=== PATIENT | male | born 1990 | race Caucasian/White ===

== ENCOUNTER 2016-09-09 10:26 | Emergency (ER) | payer OTHER, BC ==
[2016-09-09 10:30] VITALS: BP 154/80
--- NOTE | 2016-09-09 10:37 | ER Document Report ---
ED Medical Screen (RME) - General Stated Complaint: POSSIBLE SPIDER BITE Mode of Arrival: Ambulatory Information source: Patient Notes: Patient reports insect bite or sting that occurred 2 days ago while at work in the [employer]. Patient reports tenderness, redness and swelling to site. Pulse ox in triage is 98% on room air. I have greeted and performed a rapid initial assessment of this patient. A comprehensive ED assessment and evaluation of the patient, analysis of test results and completion of the medical decision making process will be conducted by additional ED providers. - Related Data Allergies/Adverse Reactions: No Known Allergies Allergy (Unverified 09/09/16 10:35) Physical Exam - Vital signs Vitals: Temp Pulse Resp BP Pulse Ox 98.0 F 90 16 154/80 H 86 L 09/09/16 10:09/09/16 10:09/09/16 10:09/09/16 10:09/09/16 10:29 - Skin Skin Color: Erythema - Proximal third of right Course - Vital Signs Vital signs: Temp Pulse Resp BP Pulse Ox 98.0 F 90 16 154/80 H 86 L 09/09/16 10:09/09/16 10:09/09/16 10:09/09/16 10:09/09/16 10:29
--- NOTE | 2016-09-09 11:41 | ER Document Report ---
ED Skin Rash/Insect Bite/Abscs - General Chief Complaint: Insect Bite Stated Complaint: POSSIBLE SPIDER BITE Mode of Arrival: Ambulatory Information source: Patient Notes: 26-year-old male presents to the emergency department complaining of areas of redness, warmth, and tenderness to right forearm. Patient reports was working outside when he felt a prick but did not see any insect biting him. Reports over the last 2 days area has increased in diameter. Denies fever or drainage. States received tetanus vaccination within the last 2 years. TRAVEL OUTSIDE OF THE [place] IN LAST 30 DAYS: No - HPI Patient complains to provider of: Tender/swollen area Onset/Duration: Persistent Quality of pain: Achy Severity: Mild Pain Level: 1 Skin Character: Erythema, Tenderness, Warm Skin Temperature: Warm Similar symptoms previously: Yes Recently seen / treated by doctor: No - Related Data Allergies/Adverse Reactions: No Known Allergies Allergy (Verified 09/09/16 11:38) Home Medications: Current Home Medications Escitalopram Oxalate [Lexapro] 09/09/16 [History] Past Medical History - General Information source: Patient - Social History Smoking Status: Never Smoker Chew tobacco use (# tins/day): No Frequency of alcohol use: Occasional Drug Abuse: None Family History: Reviewed & Not Pertinent Patient has suicidal ideation: No Patient has homicidal ideation: No Renal/ Medical History: Denies: Hx Peritoneal Dialysis Psychiatric Medical History: Reports: Hx Anxiety Surgical Hx: Negative - Immunizations Immunizations up to date: Yes Hx Diphtheria, Pertussis, Tetanus Vaccination: Yes Review of Systems - Review of Systems Constitutional: No symptoms reported EENT: No symptoms reported Cardiovascular: No symptoms reported Respiratory: No symptoms reported Gastrointestinal: No symptoms reported Genitourinary: No symptoms reported Male Genitourinary: No symptoms reported Musculoskeletal: No symptoms reported Skin: See HPI Hematologic/Lymphatic: No symptoms reported Neurological/Psychological: No symptoms reported -: Yes All other systems reviewed and negative Physical Exam - Vital signs Vitals: Temp Pulse Resp BP Pulse Ox 98.0 F 90 16 154/80 H 98 09/09/16 10:29 09/09/16 10:29 09/09/16 10:29 09/09/16 10:29 09/09/16 10:29 - General General appearance: Appears well, Alert In distress: None - Respiratory Respiratory status: No respiratory distress Chest status: Nontender Breath sounds: Normal Chest palpation: Normal - Cardiovascular Rhythm: Regular Heart sounds: Normal auscultation Murmur: No Pulses: Normal: Radial Normal capillary refill: Yes - Extremities General upper extremity: Normal inspection, Nontender, Normal color, Normal ROM , Normal temperature General lower extremity: Normal inspection, Nontender, Normal color, Normal ROM , Normal temperature, Normal weight bearing Forearm: Other - Approximately 3 cm diameter circular area of erythema, tenderness, and slight warmth to proximal lateral right forearm. Does not involve the elbow joint and is not circumferential. No significant swelling, fluctuance, or drainage. Distal neurovascular function intact. Course - Re-evaluation Re-evalutation: 09/09/16 11:40 Patient hemodynamically stable, in no distress, afebrile. Mild cellulitis to right forearm at this time with no suggestion of abscess or other complications. Area is not circumferential and does not involve any joints. Area was demarcated with surgical marking pen so patient can monitor progression at home. No indication for I&D at this time. Will give course of clindamycin, patient appears so for discharge, and agrees with home care, follow -up, and ED return precautions. - Vital Signs Vital signs: Temp Pulse Resp BP Pulse Ox 98.0 F 90 16 154/80 H 98 09/09/16 10:29 09/09/16 10:29 09/09/16 10:29 09/09/16 10:29 09/09/16 10:29 Discharge - Discharge Clinical Impression: Cellulitis Qualifiers: Site of cellulitis: extremity Site of cellulitis of extremity: upper extremity Laterality: right Qualified Code(s): L03.113 - Cellulitis of right upper limb Condition: Stable Disposition: HOME, SELF-CARE Additional Instructions: CELLULITIS: You have an infection of your skin and underlying soft tissues called cellulitis. This is due to bacteria, which can enter through any break in the skin, or even through an irritated hair follicle. Untreated, cellulitis will usually worsen. Antibiotics are required. Usually, warm packs or warm soaks, and elevation of the infected area are recommended. You should start getting better within 24 to 36 hours. Most infections respond quickly to the right medication. Follow-up care is important, however, to check for abscess (boil) formation, unsuspected foreign body, or resistant infection. If you develop fever, chills, or if the area of infection is becoming rapidly more swollen or painful, call the doctor at once. ANTIBIOTIC THERAPY: You have been given an antibiotic prescription. It's important that you take all the medication, unless instructed otherwise by your physician. Failure to complete the entire course can result in relapse of your condition. Common side effects of antibiotics include nausea, intestinal cramping, or diarrhea. Women may develop vaginal yeast infections, and babies can get yeast (thrush) in the mouth following the use of antibiotics. Contact your physician if you develop significant side effects from this medication. Allergy to this antibiotic can result in hives, wheezing, faintness, or itching. If symptoms of allergy occur, stop the medication and call the doctor. CLINDAMYCIN: You have been given a prescription for the antibiotic clindamycin. It is often prescribed for infections in the mouth, such as dental infections or abscesses, and for skin infections due to MRSA. It's important that you take all the medication, unless instructed otherwise by your physician. Failure to complete the entire course can result in relapse of your condition. Common side effects of antibiotics include nausea, intestinal cramping, or diarrhea. Women may develop vaginal yeast infections, and babies can get yeast (thrush) in the mouth following the use of antibiotics. Contact your physician if you develop significant side effects from this medication. Allergy to this antibiotic can result in hives, wheezing, faintness, or itching. If symptoms of allergy occur, stop the medication and call the doctor. Acetaminophen Acetaminophen may be taken for pain relief or fever control. It's much safer than aspirin, offering a wider range of "safe" dosages. It is safe during . Some brand names are Tylenol, Panadol, Datril, Anacin 3, Tempra, and Liquiprin. Acetaminophen can be repeated every four hours. The following are maximum recommended dosages: WEIGHT Dose Drops Elixir Chewable( 80mg) (LBS.) drprs=droppers tsp=teaspoon 6 40 mg .4 ml (1/2) 6-11 80 mg .8 ml (full) 1/2 tsp 1 tab 12-16 120 mg 1 1/2 drprs 3/4 tsp 1 1/2 tabs 17-23 160 mg 2 drprs 1 tsp 2 tabs 24-30 240 mg 3 drprs 1 1/2 tsp 3 tabs 30-35 320 mg 2 tsp 4 tabs 36-41 360 mg 2 1/4 tsp 4 1 /2 tabs 42-47 400 mg 2 1/2 tsp 5 tabs 48-53 480 mg 3 tsp 6 tabs 54-59 520 mg 3 1/4 tsp 6 1 /2 tabs 60-64 560 mg 3 1/2 tsp 7 tabs 65-70 600 mg 3 3/4 tsp 7 1 /2 tabs 71-76 640 mg 4 tsp 8 tabs 77-82 720 mg 4 1/2 tsp 9 tabs 83-88 800 mg 5 tsp 10 tabs >89 pounds or adults 650 mg to 900 mg Acetaminophen can be repeated every four hours. Maximum daily dose not to exceed 4000 mg. These maximum recommended dosages are slightly higher than the dosages written on the product container, but these dosages are very safe and well below the toxic dosage for acetaminophen. Use of Aewn-Igz-Kmfpymw Ibuprofen Ibuprofen (Advil, Nuprin, Medipren, Motrin IB) is an excellent, safe drug for fever and pain control. In addition, it has anti- inflammatory effects which may be beneficial, especially in the treatment of injuries. It's best to take ibuprofen with food. Persons with ulcer disease or allergy to aspirin should notify their physician of this before taking ibuprofen. Ibuprofen can be given every four to six hours, for a total of four doses daily. Age Pain or fever dose Antiinflammatory dose 6-8 yr 200 mg (1 tab) 200 mg (1 tab) 9-11 yr 200 mg (1 tab) 200-400 mg (1-2 tab) 11-14 yr 200-400 mg (1-2 tab) 400 mg (2 tab) 15-adult 400 mg (2 tab) 600 mg (3 tab) Elevation & Warmth The area should be elevated as much as possible over the next 48 hours. Try to keep it above the level of your heart. Apply gentle heat (such as a heating pad or hot water bottle) for about 20 to 30 minutes about every two hours -- at least four times daily. Warmth and elevation will help you make a more rapid recovery, and will ease the pain considerably. FOLLOW-UP CARE: Follow-up with your primary care provider this week. Return to the emergency department for any worsening symptoms or concerns. Prescriptions: Clindamycin HCl 300 mg PO Q6H #28 capsule Forms: Elevated Blood Pressure
== END 2016-09-09 11:46 | disposition home or self-care (01) ==
LOC: ER 10:26
DX: L03.113 Cellulitis of right upper limb (principal)
CPT/HCPCS: 99282

== ENCOUNTER 2016-09-11 19:20 | Emergency (ER) | payer OTHER, BC ==
[2016-09-11 19:30] VITALS: BP 149/78
--- NOTE | 2016-09-11 19:38 | ER Document Report ---
ED Medical Screen (RME) - General Stated Complaint: RECHECK/ABSCESS ON RIGHT ARM Time seen by provider: 19:37 Mode of Arrival: Ambulatory Information source: Patient Notes: 26-year-old male presents to ED with abscess to his right forearm. He states he was seen here [place] morning and was I&D with a needle to check for pus which none came out just blood and now the site has gotten bigger and more painful. He was started on clindamycin which she has been taken he states. I have greeted and performed a rapid initial assessment of this patient. A comprehensive ED assessment and evaluation of the patient, analysis of test results and completion of medical decision making process will be conducted by an additional ED providers. TRAVEL OUTSIDE OF THE [place] IN LAST 30 DAYS: No - Related Data Allergies/Adverse Reactions: No Known Allergies Allergy (Verified 09/11/16 19:36) Past Medical History Renal/ Medical History: Denies: Hx Peritoneal Dialysis Psychiatric Medical History: Reports: Hx Anxiety - Immunizations Immunizations up to date: Yes Hx Diphtheria, Pertussis, Tetanus Vaccination: Yes Physical Exam - Vital signs Vitals: Temp Pulse Resp BP Pulse Ox 98.3 F 83 16 149/78 H 97 09/11/16 19:28 09/11/16 19:28 09/11/16 19:28 09/11/16 19:28 09/11/16 19:28 Course - Vital Signs Vital signs: Temp Pulse Resp BP Pulse Ox 98.3 F 83 16 149/78 H 97 09/11/16 19:28 09/11/16 19:28 09/11/16 19:28 09/11/16 19:28 09/11/16 19:28
[2016-09-11] MEDS ORDERED: VANCOMYCIN HCL INJ 1000 MG VIAL IV ONE (21:25)
[2016-09-11] MEDS ORDERED: MORPHINE SULFATE 10 MG/ML INJ IV ONE (21:26)
[2016-09-11] MEDS ORDERED: LIDOCAINE 1% INJ-PF (10 MG/ML) 30 ML SDV INJ ONE (21:26)
--- NOTE | 2016-09-11 21:45 | ER Document Report ---
ED General - General Chief Complaint: Abscess Recheck Stated Complaint: RECHECK/ABSCESS ON RIGHT ARM Mode of Arrival: Ambulatory Information source: Patient Notes: This is a 26-year-old male who presents for reevaluation of cellulitis on his right upper extremity. He states that he was seen for small area of redness on near his right elbow 3 days ago. He had a needle aspiration performed which did not produce any purulence. He was discharged with clindamycin 300 mg 4 times a day which he's been compliant with. Yesterday he noticed that the redness had extended out of the Jese made on Monday. Today he had increasing redness and pain to his arm. No fevers or chills. He has been tolerating by mouth well TRAVEL OUTSIDE OF THE [place] IN LAST 30 DAYS: No - Related Data Allergies/Adverse Reactions: No Known Allergies Allergy (Verified 09/11/16 19:36) Past Medical History - General Information source: Patient - Social History Smoking Status: Never Smoker Chew tobacco use (# tins/day): No Frequency of alcohol use: Occasional Drug Abuse: None Family History: Reviewed & Not Pertinent Patient has suicidal ideation: No Patient has homicidal ideation: No Endocrine Medical History: Denies: Hx Diabetes Mellitus Type 2 Renal/ Medical History: Denies: Hx Peritoneal Dialysis Psychiatric Medical History: Reports: Hx Anxiety - Immunizations Immunizations up to date: Yes Hx Diphtheria, Pertussis, Tetanus Vaccination: Yes Review of Systems - Review of Systems Notes: REVIEW OF SYSTEMS: CONSTITUTIONAL : As per history of present illness EENT: Denies eye, ear, throat, or mouth pain or symptoms. Denies nasal or sinus congestion. CARDIOVASCULAR: Denies chest pain. RESPIRATORY: Denies cough, cold, or chest congestion. Denies shortness of breath, difficulty breathing, or wheezing. GASTROINTESTINAL: Denies abdominal pain. Denies nausea, vomiting, or diarrhea. GENITOURINARY: Denies difficulty urinating, painful urination, burning, frequency, or blood in urine. MUSCULOSKELETAL: Denies neck or back pain or joint pain or swelling. SKIN: As per history of present illness HEMATOLOGIC : Denies easy bruising or bleeding. LYMPHATIC: Denies swollen, enlarged glands. NEUROLOGICAL: Denies altered mental status or loss of consciousness. PSYCHIATRIC: Denies anxiety or stress or depression. ALL OTHER SYSTEMS REVIEWED AND NEGATIVE. Physical Exam - Vital signs Vitals: Temp Pulse Resp BP Pulse Ox 98.3 F 83 16 149/78 H 97 09/11/16 19:28 09/11/16 19:28 09/11/16 19:28 09/11/16 19:28 09/11/16 19:28 - Notes Notes: PHYSICAL EXAMINATION: GENERAL: Well-appearing, well-nourished and in no acute distress. HEAD: Atraumatic, normocephalic. EYES: Pupils equal round and reactive to light, extraocular movements intact, sclera anicteric, conjunctiva are normal. ENT: nares patent, oropharynx clear without exudates. Moist mucous membranes. NECK: Normal range of motion, supple without lymphadenopathy LUNGS: Breath sounds clear to auscultation bilaterally and equal. No wheezes rales or rhonchi. HEART: Regular rate and rhythm without murmurs ABDOMEN: Soft, nontender, normoactive bowel sounds. No guarding, no rebound. No masses appreciated. EXTREMITIES: Normal range of motion, no pitting or edema. No cyanosis. RUE: 2.5cm x 2 cm erythematous fluctuant area just proximal to elbow posteriorly, with surrounding erythema extending 7-8 cm from abscess, area marked with skin marker. FROM to elbow without pain. All compartments soft. NEUROLOGICAL: Cranial nerves grossly intact. Normal speech, normal gait. Normal sensory, motor, and reflex exams. PSYCH: Normal mood, normal affect. SKIN: Warm, Dry, normal turgor, no rashes or lesions noted. Course - Re-evaluation Re-evalutation: 09/11/16 23:20 Labs reviewed. All reassuring. Patient has had an extension of the cellulitis despite by mouth antibiotics however his abscess had not been I&D'd until tonight. Will change his antibiotics to Bactrim and Keflex and patient will follow up for wound check here in the emergency department in 24 hours. - Vital Signs Vital signs: Temp Pulse Resp BP Pulse Ox 98.3 F 83 16 149/78 H 97 09/11/16 19:28 09/11/16 19:28 09/11/16 19:28 09/11/16 19:28 09/11/16 19:28 - Laboratory Result Diagrams: 09/11/16 22:10 09/11/16 22:10 Laboratory results interpreted by me: 09/11/16 09/11/16 22:10 22:10 RBC 4.28 L Glucose 112 H Procedures - Incision and Drainage right upper arm Type: Simple Anesthetic type: 1% Lidocaine mL's of anesthetic: 3 Blade size: 11 I&D procedure: Betadine prep applied, Shurclens applied, Iodoform packing placed , Sterile dressing applied Incision Method: Incision made by scalpel Amount/type of drainage: moderate prurulent and sanguinous Discharge - Discharge Clinical Impression: Abscess of right upper extremity, Cellulitis of right arm Condition: Stable Disposition: HOME, SELF-CARE Additional Instructions: ABSCESS: You have an abscess (boil). This a pus-forming infection, usually due to staph. Some boils may be left to drain on their own, but most require lancing. From the time the tender lump first appears, it may be three or four days before the abscess is ready to alma. Local heat and rest help at this stage of treatment. An antibiotic may prevent spread of the infection. Once the abscess is opened, packing may be placed into it. This is done so pus is not sealed inside by premature closure of the cavity. The packing will be removed at your follow-up visit or you may be advised to remove it yourself at home. Sometimes this packing must be replaced a few times during healing. The wound will heal with surprisingly little scar. Depending on the size and location of an abscess, healing can take one to four weeks. You may shower and wash the area around the incision site two or three times a day. Antibiotics may be prescribed, but are usually not necessary after an abscess has been drained. If you develop fever, chills, worsening pain, or increasing swelling in the area, call the doctor or return immediately. POST INCISION AND DRAINAGE: You have had an incision made to allow drainage of an abscess. The incision must remain open so that pus and debris can drain from the wound. If the abscess cavity is large, packing is placed. This keeps the tissues from collapsing and trapping pus inside, while the body shrinks the cavity. The packing may need to be replaced every day or two. The physician will instruct you on the packing. Keep a bulky dressing over the area. Replace it if it becomes saturated with blood or pus. Do not disturb the packing (if present). You may shower and cleanse the area with gentle soap and warm water two or three times a day. Local warmth may be soothing, and may promote faster healing. Return if you develop high fever or chills, or if you note spreading redness, increasing swelling, or increasing tenderness. ORAL NARCOTIC MEDICATION: You have been given a prescription for pain control. This medication is a narcotic. It's best taken with food, as nausea can result if taken on an empty stomach. Don't operate machinery or drive within six hours of taking this medication. Do not combine this medicine with alcohol, or with any medication which can cause sedation (such as cold tablets or sleeping pills) unless you get permission from the physician. Narcotics tend to cause constipation. If possible, drink plenty of fluids and eat a diet high in fiber and fruits. CEPHALEXIN: The antibiotic you've been prescribed is a member of the cephalosporin class. This type of antibiotic covers a wide variety of infections, including those of the skin, lungs, and urinary tract. It's useful for staph infections. This antibiotic is slightly similar to the penicillin family. In rare cases , a person who is allergic to penicillin will also be allergic to this medication. If you have had a severe allergic reaction to penicillin, and have not taken this antibiotic since that time, notify your doctor. Antibiotics which cover many germs ("broad spectrum" antibiotics) are more likely to cause diarrhea or "yeast" infections. Women prone to vaginal yeast problems may suffer an attack after taking this antibiotic. In infants, oral thrush (white spots "stuck" on the cheek) or yeast diaper rash may result. See your doctor if these problems occur. Call at once if you develop itching, hives , shortness of breath, or lightheadedness. TRIMETHOPRIM-SULFA: You have been given a prescription for trimethoprim-sulfa (TMS, Septra, Bactrim). This is a combination antibiotic of the sulfa class, often used for urinary tract infections, middle ear infections, bronchitis, shigella intestinal infection, and Pneumocystis pneumonia. TMS is usually well-tolerated. Occasional side effects include nausea and decreased appetite. Septra is not recommended for infants less than two months of age. Do not take this medication if you have experienced severe side effects or allergy to sulfa medicine. You should stop this medicine at once and contact your physician if you develop any rash, joint pain, shortness of breath, bruising, or jaundice ( yellow color in the skin), or if you develop any other new or unusual symptoms. FOLLOW-UP CARE: Return to the emergency department in 24 hours for wound check as discussed. Prescriptions: Cephalexin Monohydrate [Keflex 500 mg Capsule] 500 mg PO Q6H #40 capsule Hydrocodone/Acetaminophen [Lortab 5-325 mg Tablet] 1 each PO Q6H PRN #12 tablet PRN Reason: Ibuprofen [Motrin 600 Mg Tablet] 600 mg PO TID #15 tablet Sulfamethoxazole/Trimethoprim [Bactrim 400-80 mg Tablet] 1 each PO BID #20 tablet
[2016-09-11 22:49] LABS: ABSOLUTE EOSINOPHILS # (AUTO) 0.2 10^3/uL (0.0-0.6); ABSOLUTE MONOCYTES (AUTO) 0.7 10^3/uL (0.1-1.4); ABSOLUTE NEUT (AUTO) 4.1 10^3/uL (1.7-8.2); BASOPHILS % (AUTO) 0.6 % (0-2); EOSINOPHILS % (AUTO) 2.8 % (0-6); HEMATOCRIT 39.2 % (37.9-51.0); HEMOGLOBIN 13.5 g/dL (13.5-17.0); HGB HCT DIFFERENCE 1.3; LYMPHOCYTES % (AUTO) 37.9 % (13-45); MEAN CORPUSCULAR HEMOGLOBIN 31.5 pg (27.0-33.4); MEAN CORPUSCULAR HGB CONC 34.4 g/dL (32.0-36.0); MEAN CORPUSCULAR VOLUME 92 fl (80-97); MONOCYTES % (AUTO) 8.1 % (3-13); RED BLOOD COUNT 4.28 10^6/uL (4.35-5.55); RED CELL DISTRIBUTION WIDTH 13.5 % (11.5-14.0); SEGMENTED NEUTROPHILS % (AUTO) 50.6 % (42-78)
[2016-09-11 23:05] LABS: ANION GAP 9 (5-19); BLOOD UREA NITROGEN 13 mg/dL (7-20); CARBON DIOXIDE 27 mmol/L (22-30); CHLORIDE 107 mmol/L (98-107); CREATININE RESULT 0.59 mg/dL (0.52-1.25); GLUCOSE 112 mg/dL (75-110); POTASSIUM 3.7 mmol/L (3.6-5.0); SODIUM 142.8 mmol/L (137-145)
[2016-09-11] MEDS ORDERED: CEPHALEXIN 500 MG CAPSULE PO ONE (23:21)
[2016-09-11] MEDS ORDERED: SULFAMETHOXAZOLE/TRIMETHOPRIM 800-160 MG TABLET PO ONE (23:21)
== END 2016-09-12 00:30 | disposition home or self-care (01) ==
LOC: ER 19:20
PROC: 0H9BXZZ Drainage of Right Upper Arm Skin, External Approach (ICD-10-PCS; principal; 2016-09-11)
DX: L02.413 Cutaneous abscess of right upper limb (principal)
CPT/HCPCS: 10060; 99283; 36415; 87040; 87070; 87205; 85025; 87075; 87077; 80048; 87186; J3490; J2270; J3370

== ENCOUNTER 2016-09-12 21:22 | Emergency (ER) | payer OTHER, BC ==
[2016-09-12 21:28] VITALS: BP 133/69
--- NOTE | 2016-09-12 21:46 | ER Document Report ---
ED Medical Screen (RME) - General Stated Complaint: WOUND RECHECK Mode of Arrival: Ambulatory Information source: Patient Notes: 26 y/o M presents to ED for wound/abscess recheck. Pt reports had abscess to right forearm I&D'd and packed yesterday. Reports area of redness and tenderness improving. Denies fever. I have greeted and performed a rapid initial assessment of this patient. A comprehensive ED assessment and evaluation of the patient, analysis of test results and completion of the medical decision making process will be conducted by additional ED providers. TRAVEL OUTSIDE OF THE [place] IN LAST 30 DAYS: No - Related Data Allergies/Adverse Reactions: No Known Allergies Allergy (Verified 09/11/16 19:36) Past Medical History - Social History Chew tobacco use (# tins/day): No Frequency of alcohol use: None Drug Abuse: None Endocrine Medical History: Denies: Hx Diabetes Mellitus Type 2 Renal/ Medical History: Denies: Hx Peritoneal Dialysis Psychiatric Medical History: Reports: Hx Anxiety - Immunizations Immunizations up to date: Yes Hx Diphtheria, Pertussis, Tetanus Vaccination: Yes Physical Exam - Vital signs Vitals: Temp Pulse Resp BP Pulse Ox 98.3 F 80 16 133/69 H 96 09/12/16 21:27 09/12/16 21:27 09/12/16 21:27 09/12/16 21:27 09/12/16 21:27 - General General appearance: Appears well, Alert In distress: None - Respiratory Respiratory status: No respiratory distress - Cardiovascular Rhythm: Regular Pulses: Normal: Radial Normal capillary refill: Yes Course - Vital Signs Vital signs: Temp Pulse Resp BP Pulse Ox 98.3 F 75 16 133/69 H 98 09/12/16 21:36 09/12/16 21:36 09/12/16 21:36 09/12/16 21:36 09/12/16 21:36
--- NOTE | 2016-09-12 23:28 | ER Document Report ---
ED Wound - General Chief Complaint: Wound Recheck Stated Complaint: WOUND RECHECK Mode of Arrival: Ambulatory Information source: Patient Notes: This is 26-year-old man who presents for wound check evaluation as instructed. He was seen last night and had a right upper extremity abscess I&D'd. He also had significant amount of cellulitis or an abscess. He states that he is feeling much better and has had no fevers or chills. He states that the pain is much less. Also the erythema is much improved. He has no new complaints tonight. He has not changed the bandage yet and has waited until tonight have that done. TRAVEL OUTSIDE OF THE [place] IN LAST 30 DAYS: No - Related Data Allergies/Adverse Reactions: No Known Allergies Allergy (Verified 09/11/16 19:36) Past Medical History - General Information source: Patient - Social History Smoking Status: Never Smoker Chew tobacco use (# tins/day): No Frequency of alcohol use: None Drug Abuse: None Family History: Reviewed & Not Pertinent Patient has suicidal ideation: No Patient has homicidal ideation: No Endocrine Medical History: Denies: Hx Diabetes Mellitus Type 2 Renal/ Medical History: Denies: Hx Peritoneal Dialysis Psychiatric Medical History: Reports: Hx Anxiety - Immunizations Immunizations up to date: Yes Hx Diphtheria, Pertussis, Tetanus Vaccination: Yes Review of Systems - Review of Systems Constitutional: denies: Chills, Fever EENT: No symptoms reported Cardiovascular: No symptoms reported Respiratory: No symptoms reported Gastrointestinal: No symptoms reported. denies: Nausea, Vomiting Genitourinary: No symptoms reported Musculoskeletal: See HPI Skin: See HPI Neurological/Psychological: No symptoms reported Physical Exam - Vital signs Vitals: Temp Pulse Resp BP Pulse Ox 98.3 F 80 16 133/69 H 96 09/12/16 21:27 09/12/16 21:27 09/12/16 21:27 09/12/16 21:27 09/12/16 21:27 - Notes Notes: PHYSICAL EXAMINATION: GENERAL: Well-appearing, well-nourished and in no acute distress. HEAD: Atraumatic, normocephalic. EYES: Pupils equal round and reactive to light ENT: Moist mucous membranes. LUNGS: Breath sounds clear to auscultation bilaterally and equal. No wheezes rales or rhonchi. HEART: Regular rate and rhythm without murmurs EXTREMITIES: RUE: Significant improvement from yesterday's exam. The surrounding erythema around the cutaneous abscess has resolved. The bandage has some dried blood on it this is removed and the packing was removed as well. The cavity is shallow and therefore I do not feel further packing is needed at this time. Full range of motion to the elbow without pain, distally neurovascularly intact Course - Re-evaluation Re-evalutation: 09/13/16 07:27 Patient instructed to continue his oral antibiotics as prescribed. He will follow up with his primary care physician as needed. Strict return precautions were discussed and he is comfortable with the plan. - Vital Signs Vital signs: Temp Pulse Resp BP Pulse Ox 98.3 F 75 16 133/69 H 98 09/12/16 21:36 09/12/16 21:36 09/12/16 21:36 09/12/16 21:36 09/12/16 21:36 Discharge - Discharge Clinical Impression: Encounter for wound re-check Condition: Stable Disposition: HOME, SELF-CARE Additional Instructions: Continue antibiotics at home as instructed. Continue to elevate your arm when able. Return to the ER for any increased redness or swelling or any fevers or chills. Follow up with your primary care physician as needed.
== END 2016-09-13 00:15 | disposition home or self-care (01) ==
LOC: ER 21:22
DX: L02.413 Cutaneous abscess of right upper limb (principal)
CPT/HCPCS: 99282

== ENCOUNTER 2017-11-02 22:30 | Emergency (ER) | payer BC, OTHER ==
--- NOTE | 2017-11-02 23:50 | ER Document Report ---
ED Medical Screen (RME) - General Chief Complaint: Suicidal Ideation Stated Complaint: CONFUSED Time Seen by Provider: 11/02/17 23:48 Mode of Arrival: Ambulatory Information source: Patient, Relative TRAVEL OUTSIDE OF THE [place] IN LAST 30 DAYS: No - HPI Patient complains to provider of: ben, n/v Notes: 11/02/17 23:49 Patient is here with his at the bedside. States that he had a cough and then had some vomiting over the last several days. He takes fluoxetine for depression. States that he is concerned that because of the vomiting he has not been keeping his fluoxetine down and over the last few days he has been feeling depressed and suicidal. States that last night only getting about with suicidal thoughts. Today prior to coming in here he had suicidal thoughts as well. He denies any specific plans, but states that they do have guns at the house. He denies any abdominal pain. No other significant complaints at this time. Physical exam: Patient is in no distress at this time. He is calm and cooperative. Plan: Psych order set has been ordered including blood work, urine, psych consult. An initial examination was made on the patient as part of the triage process, and it was determined a more comprehensive evaluation was necessary. Initial labs were ordered and patient was transferred to another provider in the ED who assumed care and finished evaluation and plan. - Related Data Allergies/Adverse Reactions: No Known Allergies Allergy (Verified 09/11/16 19:36) Past Medical History Endocrine Medical History: Denies: Hx Diabetes Mellitus Type 2 Renal/ Medical History: Denies: Hx Peritoneal Dialysis Psychiatric Medical History: Reports: Hx Anxiety - Immunizations Immunizations up to date: Yes Hx Diphtheria, Pertussis, Tetanus Vaccination: Yes Physical Exam - Vital signs Vitals: Temp Pulse Resp BP Pulse Ox 98.6 F 84 18 144/75 H 97 11/02/17 22:41 11/02/17 22:41 11/02/17 22:41 11/02/17 22:41 11/02/17 22:41 Course - Vital Signs Vital signs: Temp Pulse Resp BP Pulse Ox 98.6 F 84 18 144/75 H 97 11/02/17 22:41 11/02/17 22:41 11/02/17 22:41 11/02/17 22:41 11/02/17 22:41
[2017-11-03 00:17] LABS: ABSOLUTE BASOPHILS # (AUTO) 0.1 10^3/uL (0.0-0.2); ABSOLUTE MONOCYTES (AUTO) 0.4 10^3/uL (0.1-1.4); ABSOLUTE NEUT (AUTO) 7.1 10^3/uL (1.7-8.2); BASOPHILS % (AUTO) 0.5 % (0-2); EOSINOPHILS % (AUTO) 0.3 % (0-6); HEMATOCRIT 47.2 % (37.9-51.0); HEMOGLOBIN 16.2 g/dL (13.5-17.0); LYMPHOCYTES % (AUTO) 20.7 % (13-45); MEAN CORPUSCULAR HEMOGLOBIN 30.7 pg (27.0-33.4); MEAN CORPUSCULAR HGB CONC 34.3 g/dL (32.0-36.0); MEAN CORPUSCULAR VOLUME 90 fl (80-97); MONOCYTES % (AUTO) 4.3 % (3-13); PLATELET COUNT 243 10^3/uL (150-450); RED BLOOD COUNT 5.26 10^6/uL (4.35-5.55); RED CELL DISTRIBUTION WIDTH 13.5 % (11.5-14.0); SEGMENTED NEUTROPHILS % (AUTO) 74.2 % (42-78); TOTAL CELLS COUNTED % (AUTO) 100 %; WHITE BLOOD COUNT 9.6 10^3/uL (4.0-10.5)
[2017-11-03 00:28] LABS: ALANINE AMINOTRANSFERASE 62 U/L (21-72); ALKALINE PHOSPHATASE 80 U/L (38-126); ANION GAP 11 (5-19); ASPARTATE AMINO TRANSFERASE 28 U/L (17-59); BILIRUBIN,DIRECT 0.2 mg/dL (0.0-0.4); BILIRUBIN,TOTAL 0.5 mg/dL (0.2-1.3); BLOOD UREA NITROGEN 13 mg/dL (7-20); CARBON DIOXIDE 29 mmol/L (22-30); CHLORIDE 101 mmol/L (98-107); GLUCOSE 112 mg/dL (75-110); POTASSIUM 4.3 mmol/L (3.6-5.0); SODIUM 140.9 mmol/L (137-145); TOTAL PROTEIN 7.5 g/dL (6.3-8.2)
[2017-11-03 00:29] LABS: ACETAMINOPHEN < 10 ug/mL (10-30); ALCOHOL < 10 mg/dL (NONE DETECTED); SALICYLATE < 1.0 mg/dL (2.0-20.0)
--- NOTE | 2017-11-03 00:45 | ER Document Report ---
ED Psych Disorder / Suicide - General Chief Complaint: Suicidal Ideation Stated Complaint: CONFUSED Time Seen by Provider: 11/02/17 23:48 Mode of Arrival: Ambulatory Information source: Patient TRAVEL OUTSIDE OF THE [place] IN LAST 30 DAYS: No - HPI Patient complains to provider of: Suicidal ideation, Suicidal plan Onset: Other - 3-4 days Onset was: Gradual Quality of pain: No pain Suicide Risk Factors: Depressed, Male Normal mood: No Associated symptoms: Depressed Similar symptoms previously: Yes Recently seen / treated by doctor: No Notes: Patient is a 27-year-old male with a history of depression who presents to the emergency room today complaining of worsening depression with suicidal thoughts and a plan to shoot himself, states he has access to guns at home, patient takes fluoxetine, has had some vomiting throughout the week this week and therefore believes to have vomited up every dose of fluoxetine he has taken this week, he denies any abdominal pain, no fevers although he does break out into cold sweats at times, denies any sick contacts, no questionable food intake , although he thinks about shooting himself with a gun which he has access to in his home, states he has never attempted suicide in the past, patient does report that he feels as though he is confused at times or "spacing out", staring at things in feeling like he is "zoned out" - Related Data Allergies/Adverse Reactions: No Known Allergies Allergy (Verified 09/11/16 19:36) Past Medical History - General Information source: Patient, Relative - Social History Smoking Status: Unknown if Ever Smoked Family History: Reviewed & Not Pertinent Endocrine Medical History: Denies: Hx Diabetes Mellitus Type 2 Renal/ Medical History: Denies: Hx Peritoneal Dialysis Psychiatric Medical History: Reports: Hx Anxiety - Immunizations Immunizations up to date: Yes Hx Diphtheria, Pertussis, Tetanus Vaccination: Yes Review of Systems - Review of Systems Constitutional: No symptoms reported EENT: No symptoms reported Cardiovascular: No symptoms reported Respiratory: No symptoms reported Gastrointestinal: Nausea, Vomiting Genitourinary: No symptoms reported Male Genitourinary: No symptoms reported Musculoskeletal: No symptoms reported Skin: No symptoms reported Hematologic/Lymphatic: No symptoms reported Neurological/Psychological: Depression, Suicidal ideation -: Yes All other systems reviewed and negative Physical Exam - Vital signs Vitals: Temp Pulse Resp BP Pulse Ox 98.6 F 84 18 144/75 H 97 04/19/18 22:41 11/02/17 22:41 11/02/17 22:41 11/02/17 22:41 11/02/17 22:41 Interpretation: Normal - General General appearance: Appears well, Alert - HEENT Head: Normocephalic, Atraumatic Eyes: Normal Pupils: PERRL - Respiratory Respiratory status: No respiratory distress Chest status: Nontender Breath sounds: Normal Chest palpation: Normal - Cardiovascular Rhythm: Regular Heart sounds: Normal auscultation Murmur: No - Abdominal Inspection: Normal Distension: No distension Bowel sounds: Normal Tenderness: Nontender Organomegaly: No organomegaly - Back Back: Normal, Nontender - Extremities General upper extremity: Normal inspection, Nontender, Normal color, Normal ROM , Normal temperature General lower extremity: Normal inspection, Nontender, Normal color, Normal ROM , Normal temperature, Normal weight bearing. No: Tito's sign - Neurological Neuro grossly intact: Yes Cognition: Normal Orientation: AAOx4 [place] Coma Scale Eye Opening: Spontaneous Bridget Coma Scale Verbal: Oriented Bridget Coma Scale Motor: Obeys Commands Bridget Coma Scale Total: 15 Speech: Normal Motor strength normal: LUE, RUE, LLE, RLE Sensory: Normal - Psychological Associated symptoms: Depressed, Flat affect - Skin Skin Temperature: Warm Skin Moisture: Dry Skin Color: Normal Course - Re-evaluation Re-evalutation: 11/03/17 02:37 patient sleeping comfortably, came to ED voluntarily, does admit to SI with thoughts to shoot self, has access to guns at home, IVC paperwork is filled out but not filed with [facility] to ensure patient will stay in Ed for evaluation with mental health team, he is medically cleared for disposition - Vital Signs Vital signs: Temp Pulse Resp BP Pulse Ox 98.6 F 84 18 144/75 H 97 11/02/17 22:41 11/02/17 22:41 11/02/17 22:41 11/02/17 22:41 11/02/17 22:41 - Laboratory Result Diagrams: 11/02/17 23:59 11/02/17 23:59 Laboratory results interpreted by me: 11/02/17 23:59 Glucose 112 H Salicylates < 1.0 L Acetaminophen < 10 L - EKG Interpretation by [facility] EKG shows normal: Sinus rhythm Rate: Normal Rhythm: NSR Discharge - Discharge Clinical Impression: Suicidal ideation Condition: Stable Disposition: PSYCH HOSP/UNIT
[2017-11-03 00:49] LABS: APPEARANCE,URINE CLEAR; BILIRUBIN,URINE NEGATIVE (NEGATIVE); COLOR,URINE YELLOW; GLUCOSE, URINE NEGATIVE (NEGATIVE); KETONES,URINE NEGATIVE (NEGATIVE); LEUKOCYTE ESTERASE,URINE NEGATIVE (NEGATIVE); NITRITE,URINE NEGATIVE (NEGATIVE); PROTEIN,URINE NEGATIVE (NEGATIVE); URINE SPECIFIC GRAVITY 1.018; UROBILINOGEN,URINE NEGATIVE mg/dL (<2.0)
[2017-11-03 01:02] LABS: URINE AMPHETAMINES SCREEN NEGATIVE; URINE BARBITURATES SCREEN NEGATIVE; URINE BENZODIAZEPINES SCREEN NEGATIVE; URINE COCAINE SCREEN NEGATIVE; URINE MARIJUANA (THC) SCREEN NEGATIVE; URINE METHADONE SCREEN NEGATIVE; URINE PHENCYCLIDINE SCREEN NEGATIVE
[2017-11-03] MEDS ORDERED: DIPHENHYDRAMINE HCL 25 MG CAPSULE PO ONE (01:41)
[2017-11-03] MEDS ORDERED: DIPHENHYDRAMINE HCL 25 MG CAPSULE ONE (04:52)
[2017-11-03] MEDS ORDERED: FLUOXETINE HCL 20 MG CAPSULE PO SCH (10:00)
[2017-11-03] MEDS ORDERED: FAMOTIDINE 20 MG TABLET PO SCH (10:00)
--- NOTE | 2017-11-03 10:27 | EKG REPORT ---
SEVERITY:- NORMAL ECG - SINUS RHYTHM : Confirmed by: Rey Maurer 03-Nov-2017 10:26:49
--- NOTE | 2017-11-03 11:11 | ER Document Report ---
Doctor's Note Notes: 11/03/17 11:09 27-year-old male seen here for depression. On further discussion with him and it appears that he has not been taking his SSRIs (Prozac) for about 1-1/2 weeks. Had some vomiting which could have potentially caused the loss of his medication from his GI tract. Was having some symptoms that would be most consistent with some SSRI withdrawal but also having some severe depression along with that. Patient does not want to but has been having intense depression. Was feeling not himself and was very depressed, sad and confused last night so got health some help. Initial dose of Prozac will be given this morning. We will continue to watch throughout the day to see if this makes improvement in his symptoms for which she was having. Anticipate that patient will do fine. [facility] Will continue to checks on him throughout the day to see how he is responding. Patient is comfortable at this time. Mental health is okay with restarting his Prozac and will watch him a little bit longer. Of note, I did recommend to him some E MDR therapy as he is suffering with some PTSD more likely. 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 Patient will need this treated in an effective manner and I think E MDR would be particularly helpful. Will attempt to reach out to the [facility] to see if this would be something that they could provide if not will provide him with some resources locally with some private therapist who may be able to help., 11/03/17 15:02 At this time patient feeling much better. Mental health is seen. Has follow- up information. [place] comfortable at this time discharging. Discharge - Discharge Clinical Impression: Suicidal ideation Condition: Stable Disposition: HOME, SELF-CARE Additional Instructions: DEPRESSION: Your evaluation reveals that you have mental depression. While symptoms may be vague, they often include disturbance of sleep, fatigue, loss of appetite , and general loss of interest in life. While depression may be a side effect of drugs, or a reaction to a major change in your life, many cases have no known cause. If depression is acute, and related to a major loss in your life, you can expect it to clear completely with time. If you have been depressed a long time , are prone to repeated bouts of depression or low mood, or have been thinking of suicide, get help. Depression can be treated with anti-depressant medication and counselling. Long-term depression will often take a few weeks to clear, even with appropriate medication. Follow-up care is important. SUICIDAL IDEATION: Suicidal ideation is a common medical term for thoughts about suicide, which may be as detailed as a formulated plan, without the suicidal act itself. Although most people who undergo suicidal ideation do not commit suicide, some go on to make suicide attempts. The range of suicidal ideation varies greatly from fleeting to detailed planning, role playing, and unsuccessful attempts. While thoughts about suicide are common, most people do not carry out serious actions to commit suicide. Based upon your evaluation and discussion with you, we do not believe you are currently at risk to act upon your thoughts of suicide. You have agreed to return to the Emergency Department, at any time , if you feel inclined to act upon your suicidal thoughts. FOLLOW-UP CARE: Please follow[facility]up with [facility] local [facility] on [facility] 10, 2017 at 0900. Continue taking her medications as prescribed. It is recommended you receive a trauma focused therapy (such as EMDR) to assist with posttraumatic stress stemming from moral crisis. If you experience worsening or a significant change in your symptoms, notify the physician immediately or return to the Emergency Department at any time for re-evaluation. Referrals: [facility] [Provider Group] - 11/10/17 9:00 am
--- NOTE | 2017-11-03 12:18 | PSYCHOLOGICAL NOTE ---
Psych Note - Psych Note Psych Note: Reason for Consult: suicidal ideation; IVC Consent permissions; hola Blackwood, Patient is a 27-year-old male with a history of depression who presents to the emergency room today complaining of worsening depression with suicidal thoughts and a plan to shoot himself, states he has access to guns at home, patient takes fluoxetine, he thinks about shooting himself with a gun which he has access to in his home, states he has never attempted suicide in the past, patient does report that he feels as though he is confused at times or "spacing out", staring at things in feeling like he is "zoned out" Patient had to be awoken for evaluation. Patient is polite but seems confused. Patient is unable to verbalize how he arrived to [facility] ED or why he is here. Patient does not start responding to clinician until patient is asked questions such as birthdate full name MOS and rank. Patient denies mental health diagnosis says [facility]. When asked what patient did yesterday he stated he "would have been at work... Schedule time to get off is 8 PM but I range from getting off from 9-10 I did get home last night I came straight here... My picked me up from work because I asked her to pick me up...I was feeling dizzy and stuff." Patient states he takes his medications as prescribed (Prozac 20 mg daily) patient currently works at [employer]. Patient is unable or unwilling to verbalize events which led him to think of suicidal ideation. Patient does confirm there is guns in his home. Patient notes the patient openly engaged with the attending physician and disclosed: On further discussion with him and it appears that he has not been taking his SSRIs (Prozac) for about 1-1/2 weeks. Had some vomiting which could have potentially caused the loss of his medication from his GI tract. Was having some symptoms that would be most consistent with some SSRI withdrawal but also having some severe depression along with that. Patient does not want to but has been having intense depression. Was feeling not himself and was very depressed, sad and confused last night so got health some help. 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 Patient will need this treated in an effective manner and I think E MDR would be particularly helpful. Will attempt to reach out to the [facility] to see if this would be something that they could provide if not will provide him with some resources locally with some private therapist who may be able to help. Patient is alert and orientated to person, place, time and circumstance. Mood is euthymic with restricted affect. Patient will not openly engage with clinician to discuss suicidal ideation. Clinician notes patient does open to attending physician disclosing severe depression denies suicidal and homicidal ideation. Delusions are absent and behaviors congruent with an intact reality based presentation i.e. organized and linear thought processes. Conversational speech was within normal rate, tone and prosody. Eye contact was fair. Intellectual abilities appear to be within the average range. Attention and concentration are fair. Insight, judgment, impulse control is fair. 311 (F32.9) unspecified depressive disorder 309.81 (F43.10) posttraumatic stress disorder; in connection with moral crisis Impression\\plan: Patient is recommended for continued observation. Patient does not openly engage with clinician however is noted to engage with male attending physician. Patient describes symptoms consistent with abruptly stopping his antidepressant i.e.dizziness, confusion, increased depression. Patient will be reevaluated. Patient was reevaluated with at bedside per patient's request Impression/Plan: Patient is considered cleared from acute psychiatric services. Patient does not meet IVC criteria per [place] GS 122C. Patient discloses feeling much better (no longer have difficulties with confusion, dizziness ect..) and denies any suicidal ideation. Patient agrees to be part of patient's discharge plan to ensure he does not have access to medications or weapons ( family's weapons have been removed from the home). Both patient and patient feel comfortable with patient returning home and agree to return if any increased thoughts or evidence of previous symptoms return. Patient is interested in receiving trauma focused therapy to address moral crisis issues during deployment. [facility] [address] Cardenas was consulted on the care and management of this patient; attending physician is agreement with recommendations and disposition.
[2017-11-03 15:51] VITALS: BP 133/67
== END 2017-11-03 15:51 | disposition home or self-care (01) ==
LOC: ER 22:30
DX: R45.851 Suicidal ideations (principal); R05 Cough; R11.10 Vomiting, unspecified; F32.9 Major depressive disorder, single episode, unspecified; F43.10 Post-traumatic stress disorder, unspecified
CPT/HCPCS: 36415; 80053; 80307; 81001; 85025; 93005; 93010; 99285